=== PATIENT | female | born 1980 | race Asian ===

== ENCOUNTER 2019-08-09 07:10 | Emergency (ER) | payer BC, MEDICAID ==
[2019-08-09 09:03] LABS: APPEARANCE,URINE CLEAR; BILIRUBIN,URINE NEGATIVE (NEGATIVE); COLOR,URINE YELLOW; GLUCOSE, URINE NEGATIVE (NEGATIVE); KETONES,URINE NEGATIVE (NEGATIVE); PROTEIN,URINE NEGATIVE (NEGATIVE); URINE SPECIFIC GRAVITY 1.011; UROBILINOGEN,URINE NEGATIVE mg/dL (<2.0)
--- NOTE | 2019-08-09 10:52 | ER Document Report ---
ED GI/ - General Chief Complaint: Vaginal Itching Stated Complaint: URINARY ISSUE Time Seen by Provider: 08/09/19 10:23 Notes: Patient is a 39-year-old female who presents the emergency department with a chief complaint of vaginal itching/vaginal pain for the past 10 days. She states that she has been using Vagisil to help, but has had little to no relief. Today has been worse. Patient has a history of hypothyroidism. She is currently on levothyroxine. Patient denies any discharge. States that the pain and itching is primarily on the inside and not so much on the outside. She denies any large amount of discharge. Patient denies any sexual activity. Last menstrual cycle was July 19. Patient lives here in the [place] and denies any recent travel to [place], but she speaks only [place]. Confectionery Cooker #[id number] was used for interpretation. - Related Data Allergies/Adverse Reactions: No Known Allergies Allergy (Verified 08/14/19 17:40) Past Medical History - General Information source: Patient - Social History Smoking Status: Never Smoker Family History: Reviewed & Not Pertinent Patient has suicidal ideation: No Patient has homicidal ideation: No Review of Systems - Review of Systems Notes: REVIEW OF SYSTEMS: CONSTITUTIONAL : Denies recent illness. Denies recent unintentional weight loss. Denies fever, chills, or sweats. EENT: Denies eye, ear, throat, or mouth pain, discharge, or symptoms. Denies nasal or sinus congestion. CARDIOVASCULAR: Denies chest pain. RESPIRATORY: Denies shortness of breath, cough, congestion, difficulty breathing, or wheezing. GASTROINTESTINAL: Denies nausea, vomiting, and diarrhea. Denies abdominal pain. Denies constipation. Last BM: GENITOURINARY: Denies difficulty urinating, burning, blood in urine, urgency or frequency. FEMALE GENITOURINARY: See HPI. MUSCULOSKELETAL: Denies neck and back pain. Denies joint pain or swelling. SKIN: Denies rash, itchiness, or lesions HEMATOLOGIC : Denies easy bruising or bleeding. LYMPHATIC: Denies swollen, painful, enlarged glands. NEUROLOGICAL: Denies no numbness or tingling denies weakness. Denies headache. Denies altered mental status. Denies alteration in speech. PSYCHIATRIC: Denies stress, anxiety, alteration in sleep patterns, or depression. All other systems reviewed and negative. Physical Exam - Vital signs Vitals: Temp Pulse Resp BP Pulse Ox 98.4 F 79 16 150/108 H 100 08/09/19 07:31 08/09/19 07:31 08/09/19 07:31 08/09/19 07:31 08/09/19 07:31 - Notes Notes: PHYSICAL EXAMINATION: GENERAL: Appears well, healthy, well-nourished, no acute distress. HEAD: Normocephalic, atraumatic. EYES: PERRL, conjunctiva normal, all extraocular movements intact, sclera nonicteric ENT: Moist mucous membranes. NECK: Supple, no noticeable swelling, redness, rash. Normal range of motion. LUNGS: Equal breath sounds bilaterally and clear to auscultation. No wheezes rales or rhonchi. CARDIOVASCULAR: S1-S2, regular rate, regular rhythm. Radial pulses 2+, normal. ABDOMEN: Normoactive bowel sounds. Soft, nontender, no guarding, no rebound tenderness, and no masses palpated. EXTREMITIES: Normal strength and range of motion, no pitting or edema. No cyanosis. NEUROLOGICAL: Moves all extremities upon command. Strength 5/5 in all extremities. PSYCH: Normal mood, normal affect. SKIN: Warm, dry. No rash, lesions, ulcerations noted. Normal skin turgor. BOX COVERING MACHINE OPERATOR: Small amount of clear/sher discharge noted to vagina. Course - Re-evaluation Re-evalutation: 08/09/19 10:49 RIKA Lopez at bedside for pediatric lpn. Patient had a small amount of clear/sher discharge noted. Wet mount and gonorrhea and Chlamydia will be sent. 08/09/19 12:01 I had YOANA Hanks at bedside with food and beverage assistant manager #[id number] at bedside. I discussed the findings of trichomonas on the patient's wet mount. I spoke to the patient privately and told her that she has a sexually transmitted infection. Then we brought her into the room. He states that he has not been unfaithful, but has been unfaithful in the past. I highly recommended that the patient and her see marriage counseling. This was translated via the cook camp. The patient will be started on Flagyl. She will also be treated for gonorrhea and chlamydia and I will give her Rocephin and azithromycin here in the emergency department. Via the cook camp, I also told her not to have sex and avoid alcohol. Patient is in agreement with this plan. Follow-up precautions were given. Verbal discharge instructions were given to the patient. They verbalized understanding. They are stable for discharge. - Vital Signs Vital signs: Temp Pulse Resp BP Pulse Ox 98.2 F 87 16 169/116 H 98 08/09/19 12:27 08/09/19 12:27 08/09/19 12:27 08/09/19 12:27 08/09/19 12:27 Discharge - Discharge Clinical Impression: Vaginal itching, Trichomonas vaginalis infection Condition: Stable Disposition: HOME, SELF-CARE Additional Instructions: You were seen today in the emergency department for vaginal itching. You have a trichomonas infection. You are being placed on antibiotics. Make sure you take all your antibiotics as prescribed. Please do not drink any alcohol. Do not have sex until infection has cleared. Please follow-up with a primary care provider if able. I highly recommend marriage counseling. See if you are able to make an appointment today or sometime soon. Prescriptions: Metronidazole [Flagyl 500 mg Tablet] 500 mg PO Q6H #28 tablet
[2019-08-09 10:58] LABS: BACTERIA (WET MOUNT) 3+ BACTERIA SEEN; T.VAGINALIS (WET MOUNT) TRICHOMONAS SEEN; WBCS (WET MOUNT) 2+ WBCS SEEN; YEAST (WET MOUNT) NO YEAST SEEN
[2019-08-09 10:59] LABS: EPITHELIALS (WET MOUNT) 3+ EPITHELIALS SEEN
[2019-08-09] MEDS ORDERED: LIDOCAINE 1% INJ-PF (10 MG/ML) 30 ML SDV INJ ONE (12:02)
[2019-08-09] MEDS ORDERED: AZITHROMYCIN 250 MG TABLET PO ONE (12:02)
[2019-08-09] MEDS ORDERED: CEFTRIAXONE INJ 250 MG VIAL IM ONE (12:02)
[2019-08-09 12:28] LABS: CHLAM PCR NOT DETECTED (NOT DETECT)
[2019-08-09 13:29] VITALS: BP 169/116
== END 2019-08-09 13:31 | disposition home or self-care (01) ==
LOC: ER 07:10
DX: A59.01 Trichomonal vulvovaginitis (principal); L29.2 Pruritus vulvae; E03.9 Hypothyroidism, unspecified
CPT/HCPCS: 99283; 96372; 87210; 81001; 87491; 87591; J3490; J0696

== ENCOUNTER 2019-08-14 17:07 | Emergency (ER) | payer BC ==
[2019-08-14 17:24] VITALS: BP 151/98
[2019-08-14] MEDS ORDERED: ONDANSETRON 4 MG TAB.RAPDIS PO ONE (17:55)
--- NOTE | 2019-08-14 18:00 | ER Document Report ---
ED Medical Screen (RME) - General Chief Complaint: Vaginal Itching Stated Complaint: VAGINAL ITCHING Time Seen by Provider: 08/14/19 17:43 Notes: 39 y/o female presents for continued vaginal itching for over 10 days. States seen recently and prescribed Flagyl (pt is still currently taking). Pt has associated nausea. Denies vomiting. Nontoxic, well appearing. I have greeted and performed a rapid initial assessment of this patient. A comprehensive ED assessment and evaluation of the patient, analysis of test results and completion of the medical decision making process with be conducted by additional ED providers. - Related Data Allergies/Adverse Reactions: No Known Allergies Allergy (Verified 08/14/19 17:40) Physical Exam - Vital signs Vitals: Temp Pulse Resp BP Pulse Ox 98.2 F 80 16 151/98 H 100 08/14/19 17:20 08/14/19 17:20 08/14/19 17:20 08/14/19 17:20 08/14/19 17:20 Course - Vital Signs Vital signs: Temp Pulse Resp BP Pulse Ox 98.2 F 80 16 151/98 H 100 08/14/19 17:20 08/14/19 17:20 08/14/19 17:20 08/14/19 17:20 08/14/19 17:20
[2019-08-14 18:55] LABS: ABSOLUTE EOSINOPHILS # (AUTO) 0.2 10^3/uL (0.0-0.6); ABSOLUTE LYMPHOCYTES (AUTO) 2.8 10^3/uL (0.5-4.7); ABSOLUTE MONOCYTES (AUTO) 0.5 10^3/uL (0.1-1.4); BASOPHILS % (AUTO) 0.5 % (0-2); EOSINOPHILS % (AUTO) 3.8 % (0-6); HEMATOCRIT 40.7 % (36.0-47.0); HEMOGLOBIN 13.7 g/dL (12.0-15.5); MEAN CORPUSCULAR HEMOGLOBIN 30.4 pg (27.0-33.4); MEAN CORPUSCULAR HGB CONC 33.7 g/dL (32.0-36.0); MEAN CORPUSCULAR VOLUME 90 fl (80-97); MONOCYTES % (AUTO) 7.5 % (3-13); PLATELET COUNT 237 10^3/uL (150-450); RED CELL DISTRIBUTION WIDTH 13.6 % (11.5-14.0); SEGMENTED NEUTROPHILS % (AUTO) 45.2 % (42-78); TOTAL CELLS COUNTED % (AUTO) 100 %; WHITE BLOOD COUNT 6.5 10^3/uL (4.0-10.5)
[2019-08-14 19:11] LABS: APPEARANCE,URINE CLEAR; BILIRUBIN,URINE NEGATIVE (NEGATIVE); COLOR,URINE YELLOW; GLUCOSE, URINE NEGATIVE (NEGATIVE); KETONES,URINE NEGATIVE (NEGATIVE); PROTEIN,URINE NEGATIVE (NEGATIVE); URINE SPECIFIC GRAVITY 1.014; UROBILINOGEN,URINE NEGATIVE mg/dL (<2.0)
[2019-08-14 19:15] LABS: ALBUMIN 4.2 g/dL (3.5-5.0); ALKALINE PHOSPHATASE 80 U/L (38-126); ANION GAP 8 (5-19); ASPARTATE AMINO TRANSFERASE 40 U/L (14-36); BILIRUBIN,DIRECT 0.4 mg/dL (0.0-0.4); BILIRUBIN,TOTAL 0.4 mg/dL (0.2-1.3); BLOOD UREA NITROGEN 14 mg/dL (7-20); CARBON DIOXIDE 27 mmol/L (22-30); CHLORIDE 106 mmol/L (98-107); GLUCOSE 124 mg/dL (75-110); TOTAL PROTEIN 7.9 g/dL (6.3-8.2)
--- NOTE | 2019-08-14 22:01 | ER Document Report ---
HPI - HPI Time Seen by Provider: 08/14/19 17:43 Pain Level: 5 Context: Patient is a 39-year-old female who presents to the emergency department with a chief complaint of vaginal itching. She was seen here 5 days ago and was diagnosed with trichomonas. She has been taking her Flagyl and denies any nausea or vomiting. She just states that the outer portion of her vagina was itchy. She states that she used some kind of Portuguese vaginal suppository to help with itching, but had little relief. [employer] civil litigation attorney was used to for translation. - REPRODUCTIVE Reproductive: DENIES: : Past Medical History - Social History Smoking Status: Never Smoker Chew tobacco use (# tins/day): No Frequency of alcohol use: None Drug Abuse: None Family History: Reviewed & Not Pertinent Patient has suicidal ideation: No Patient has homicidal ideation: No Vertical Provider Document - CONSTITUTIONAL Agree With Documented VS: Yes Exam Limitations: No Limitations General Appearance: No Apparent Distress - INFECTION CONTROL TRAVEL OUTSIDE OF THE [place] IN LAST 30 DAYS: No - HEENT HEENT: Atraumatic, Normocephalic, PERRLA - RESPIRATORY Respiratory: No Respiratory Distress - CARDIOVASCULAR Cardiovascular: Regular Rate - GI/ABDOMEN Gastrointestinal: Abdomen Soft, Abdomen Non-Tender - REPRODUCTIVE Female Genitalia: negative: Abnormal Inspection - erythema noted to labia minora, majora, and perineum - MUSCULOSKELETAL/EXTREMETIES Musculoskeletal/Extremeties: FROM - NEURO Level of Consciousness: Awake, Alert, Appropriate Motor/Sensory: No Motor Deficit, No Sensory Deficit Course - Re-evaluation Re-evalutation: 08/15/19 Wet mount performed with KIKI Ingram at bedside. Wet mount shows that there is no trichomonas. I advised her to continue her Flagyl, to completely get rid of the bacteria in her vagina. I also wrote a handwritten prescription for her . I have a very low suspicion for pelvic inflammatory disease. I will prescribe the patient happy any cream to help with her itching on the outside of her vagina. She is thankful for her care. This was translated via [employer] using Mandarin civil litigation attorney. Follow-up precautions were given. Verbal discharge instructions were given to the patient. They verbalized understanding. They are stable for discharge. - Vital Signs Vital signs: Temp Pulse Resp BP Pulse Ox 98.2 F 80 16 151/98 H 100 08/14/19 17:20 08/14/19 17:20 08/14/19 17:20 08/14/19 17:20 08/14/19 17:20 - Laboratory Result Diagrams: 08/14/19 18:27 08/14/19 18:27 Laboratory results interpreted by me: 08/14/19 08/14/19 18:27 18:27 Glucose 124 H AST 40 H ALT 45 H Leukocyte Esterase Rfl SMALL H Discharge - Discharge Clinical Impression: Vaginal itching Condition: Stable Disposition: HOME, SELF-CARE Additional Instructions: You were seen today in the emergency department for vaginal itching. The infection you had has cleared. Continue your antibiotics. You are being sent home with a cream to help with itching. Prescriptions: Miscellaneous Medication [Happy Hiney Cream] 1 applic TOP ASDIR PRN #30 gm PRN Reason:
[2019-08-14 22:49] LABS: BACTERIA (WET MOUNT) 4+ BACTERIA SEEN; RBCS (WET MOUNT) RARE RBCS SEEN; T.VAGINALIS (WET MOUNT) NO TRICHOMONAS SEEN; WBCS (WET MOUNT) 2+ WBCS SEEN; YEAST (WET MOUNT) NO YEAST SEEN
[2019-08-14 22:50] LABS: EPITHELIALS (WET MOUNT) 3+ EPITHELIALS SEEN
== END 2019-08-14 23:26 | disposition home or self-care (01) ==
LOC: ER 17:07
DX: L29.9 Pruritus, unspecified (principal); A59.9 Trichomoniasis, unspecified
CPT/HCPCS: 36415; 80053; 81001; 85025; 87086; 87210; 99283